=== PATIENT | female | born 1980 | race Caucasian/White ===

== ENCOUNTER 2018-12-12 16:17 | Emergency (ER) | payer MEDICAID | END 2018-12-12 16:42 | disposition left against medical advice (07) | LOC: ER 16:17 | DX: M54.9 Dorsalgia, unspecified (principal); Z53.21 Procedure and treatment not carried out due to patient leaving prior to being seen by health care provider ==

== ENCOUNTER 2018-12-17 19:45 | Emergency (ER) | payer MEDICAID ==
[~2018-12-17] VITALS: Ht 167.6 cm; Wt 59.0 kg
[2018-12-17] MEDS ORDERED: ONDANSETRON HCL 4MG/2ML INJ IV STA (20:39)
[2018-12-17] MEDS ORDERED: MORPHINE SULFATE 4 MG/ML CPJ (NOT FOR IM USE) IV STA (20:39)
[2018-12-17] MEDS ORDERED: SODIUM CHLORIDE 0.9% 1,000 ML IV ONE (20:39)
[2018-12-17] MEDS ORDERED: IBUPROFEN 600MG TABLET PO ONE (22:45)
[2018-12-17 22:51] VITALS: BP 132/72
[2018-12-17 22:55] LABS: BASOPHILS % 0.4 % (0.0-2.0); EOSINOPHILS % 5.7 % (0.0-5.0); HEMATOCRIT. 36.3 % (36.0-48.0); HEMOGLOBIN. 12.8 g/dL (12.0-16.0); LYMPHOCYTES % 41.4 % (20.0-50.0); MEAN CORPUSCULAR HEMOGLOBIN 33.3 pg (28.0-32.0); MEAN CORPUSCULAR VOLUME 94.8 fL (81.0-99.0); MEAN PLATELET VOLUME 7.7 fl (7.4-10.4); MONOCYTES % 8.5 % (2.0-8.0); PLATELET 347 x1000/uL (130-400); RED BLOOD CELL COUNT 3.83 mill/uL (4.2-5.4); RED CELL DISTRIBUTION WIDTH 13.5 % (11.6-14.6)
[2018-12-17 22:59] LABS: CHLORIDE 110 mEq/L (98-107)
[2018-12-17 23:01] LABS: INR 0.9; PROTHROMBIN TIME 9.7 sec (9.6-11.0)
== END 2018-12-17 23:01 | disposition home or self-care (01) ==
LOC: ER 19:45
DX: N12 Tubulo-interstitial nephritis, not specified as acute or chronic (principal); F17.200 Nicotine dependence, unspecified, uncomplicated; Z88.1 Allergy status to other antibiotic agents
CPT/HCPCS: 36415; 76775; 80053; 83690; 85025; 85610; 99284; J7030

== ENCOUNTER 2018-12-28 23:59 | Emergency (ER) | payer MEDICAID ==
[~2018-12-28] VITALS: Ht 154.9 cm; Wt 44.0 kg
[2018-12-29] MEDS ORDERED: SULFAMETHOXAZOLE/TRIMETHOPRIM 800/160MG TABLET PO ONE (02:45)
[2018-12-29 02:55] LABS: HEMATOCRIT 35.1 % (36.0-48.0); HEMOGLOBIN 12.2 g/dL (12.0-16.0); MEAN CORPUSCULAR HEMOGLOBIN 33.1 pg (28.0-32.0); MEAN CORPUSCULAR VOLUME 94.7 fL (81.0-99.0); PLATELET 406 x1000/uL (130-400); RED CELL DISTRIBUTION WIDTH 14.1 % (11.6-14.6)
[2018-12-29 03:03] LABS: CHLORIDE 103 mEq/L (98-107)
[2018-12-29 03:14] LABS: CLARITY URINE CLEAR (CLEAR); COLOR URINE YELLOW (YELLOW); KETONES URINE NEGATIVE (NEGATIVE); LEUKOCYTE ESTERASE URINE TRACE (NEGATIVE); NITRITE URINE NEGATIVE (NEGATIVE); OCCULT BLOOD URINE NEGATIVE (NEGATIVE); PROTEIN URINE TRACE (NEGATIVE); SPECIFIC GRAVITY URINE 1.025 (1.005-1.030)
[2018-12-29 16:45] VITALS: BP 121/79
== END 2018-12-29 16:55 | disposition home or self-care (01) ==
LOC: ER 23:59
DX: N39.0 Urinary tract infection, site not specified (principal); F41.9 Anxiety disorder, unspecified; I95.9 Hypotension, unspecified; F17.200 Nicotine dependence, unspecified, uncomplicated; Z88.1 Allergy status to other antibiotic agents
CPT/HCPCS: 36415; 81025; 85027; 99283

== ENCOUNTER 2019-01-08 05:24 | Emergency (ER) | payer MEDICAID ==
[~2019-01-08] VITALS: Ht 154.9 cm; Wt 44.0 kg
[2019-01-08 06:26] LABS: BASOPHILS % 0.5 % (0.0-2.0); HEMATOCRIT. 36.4 % (36.0-48.0); HEMOGLOBIN. 12.5 g/dL (12.0-16.0); LYMPHOCYTES % 18.6 % (20.0-50.0); MEAN CORPUSCULAR HEMOGLOBIN 32.6 pg (28.0-32.0); MEAN CORPUSCULAR VOLUME 94.6 fL (81.0-99.0); MEAN PLATELET VOLUME 7.6 fl (7.4-10.4); MONOCYTES % 8.1 % (2.0-8.0); NEUTROPHILS % 69.8 % (40.0-76.0); PLATELET 346 x1000/uL (130-400); RED BLOOD CELL COUNT 3.85 mill/uL (4.2-5.4); RED CELL DISTRIBUTION WIDTH 13.7 % (11.6-14.6)
[2019-01-08 06:32] LABS: CHLORIDE 106 mEq/L (98-107)
[2019-01-08 06:36] LABS: HCG SCREEN NEGATIVE
[2019-01-08 08:31] LABS: CLARITY URINE TURBID (CLEAR); COLOR URINE YELLOW (YELLOW); KETONES URINE 1+ (NEGATIVE); LEUKOCYTE ESTERASE URINE 3+ (NEGATIVE); NITRITE URINE POSITIVE (NEGATIVE); OCCULT BLOOD URINE 3+ (NEGATIVE); PROTEIN URINE 3+ (NEGATIVE); SPECIFIC GRAVITY URINE 1.021 (1.005-1.030)
[2019-01-08] MEDS ORDERED: LEVOFLOXACIN 500MG TABLET PO ONE (08:45)
[2019-01-08 09:33] VITALS: BP 110/70
== END 2019-01-08 09:45 | disposition home or self-care (01) ==
LOC: ER 05:24
DX: N39.0 Urinary tract infection, site not specified (principal); F41.9 Anxiety disorder, unspecified; I10 Essential (primary) hypertension; F17.210 Nicotine dependence, cigarettes, uncomplicated; Z88.1 Allergy status to other antibiotic agents
CPT/HCPCS: 36415; 80053; 81003; 81025; 84703; 85025; 99283; Z7610